=== PATIENT | female | born 1930 | race Caucasian/White ===

== ENCOUNTER 2017-03-16 16:06 | Emergency (ER) | payer MEDICAID ==
[2017-03-16 18:40] VITALS: BP 155/56
--- NOTE | 2017-03-18 11:19 | CR ---
INDICATION: Blood in mouth on awakening. Non-smoker. No cough. History of large hiatal hernia. Question pulmonary mass. CHEST: PA and lateral views of the chest 03/16/2017 were compared with 2014, again revealing a massive fixed hiatal hernia. Increased flattening of diaphragm leaves is compatible with progressive COPD. Prominent AP diameter is noted. The heart is enlarged. The aorta is tortuous and calcified. Accentuated dorsal kyphosis is noted. At the left lung base, it is difficult to exclude areas of patchy pneumonia with heavy markings in that area. Findings could also be on the basis of atelectasis. Otherwise, an active infiltrate or effusion was not suggested. IMPRESSION: 1. Cannot exclude atelectasis or patchy pneumonia at the left lung base - correlate clinically. 2. Large fixed hiatal hernia. 3. ASHD with cardiomegaly. 4. COPD, progressive. 5. Probable osteoporosis, moderate kyphosis. MTDD
--- NOTE | 2017-03-19 14:25 | ER ---
DATE SEEN: 03/16/2017 TIME SEEN: The patient was seen at 1635 hours. CHIEF COMPLAINT: Epistaxis. HISTORY OF PRESENT ILLNESS: The patient awoke this morning with a blood clot in her mouth. She does not know where it came from. She lives alone. She is worried that she might bleed to . She is here for further evaluation. PAST MEDICAL HISTORY: Significant for diabetes, hypertension, GERD, 50% of her stomach is noted to be in her abdomen per Dr. Driscoll's previous EGD with document of a dormant ulcer. No interval bleeding ulcer, but she had bleeding ulcers in the past. No recent stresses. No recent use of steroids. No recent fever, chills, cough, sore throat, nasal congestion, or runny nose. Significant for anemia, hypertension, arthritis in knees and hips, GERD, hiatus hernia, obesity, chronic kidney disease, anxiety, and dyslipidemia. REVIEW OF SYSTEMS: Denies shortness of breath, chest pain, irregular heartbeat, or abdominal discomfort. She does have swelling in her ankles. Denies near syncope, but she has difficulty walking. She has spent much time in a wheelchair because of her significant hip and knee arthritis. She is markedly obese 220 pounds with a 4 feet 11 inches height with a BMI of 44.4 kg/m2. Review of systems unremarkable except as noted above. PHYSICAL EXAMINATION: VITAL SIGNS: Blood pressure 163/60, repeat 155/56. The patient was concerned initially about her elevated blood pressure this evening. Heart rate 73 and regular. Respirations 18 and oxygen saturation 98% on room air. Temperature 36.3 degrees centigrade. CONSTITUTIONAL: The patient is sitting in a wheelchair, pleasant. Markedly obese woman, appears with markedly pendulous breasts. Very pleasant and interactive, in no acute distress, but anxious about possible cause of bleeding from her nose. She notes she coughs occasionally. HEENT: Without abnormality. PERRLA intact. Pharynx without erythema, without blood. Nares, right lateral turbinate suggesting excoriation is healed with no evidence for a focal bleeding site at the nares. Nares are clear of any blood. Pharynx is clear of any blood. LUNGS: Clear without rales, rhonchi, or wheezes. HEART: S1, S2. No tachycardia. ABDOMEN: Soft. No guarding. No deep abdominal pain and discomfort. Moderate increased abdominal girth. EXTREMITIES: Lower extremities with 1+ pedal edema. Nontender in lower extremities. Deep tendon reflexes hypoactive in upper and lower extremities. NEUROLOGIC: Cranial nerves 2 through 12 intact. Oriented appropriate and speech appropriate. Strength is decreased. The etiology for the patient's epistaxis is indeterminate. Does not appear to be from the nose. It looks like an old excoriation from "her picking her nose". The lateral mid turbinate is not the source of bleeding presently. LABORATORY DATA: Chest x-ray is performed. No evidence for lesion noted, no cardiomegaly, no lesions or granulomas or masses noted in the lungs. Other lab studies: Leukopenia 4000, hemoglobin low anemia 10.3, platelet count low 70,000. PMNs 62; lymphocytes 21; monos 13, slightly elevated; and eosinophils normal. PTT 25.8, normal and INR 1.04. Complete metabolic panel: Sodium, potassium, chloride, and CO2 normal at 143, 4.7, 107, and 28. BUN 38, creatinine 1.4 (suggests chronic kidney disease). Estimated creatinine clearance noted to be 23, however, GFR 36. BUN and creatinine ratio of 27 suggesting dehydration. Alkaline phosphatase slightly elevated 125, total protein 8.4. AST and ALT are normal, and bilirubin normal. After rechecking nares, she said she had a little more blood from her nose. Now, it is apparent that she has bleeding from the friable right medial septal mucosa. This site was treated with silver nitrate with resolution of bleeding. Site of epistaxis felt to be medial septal nares secondary to desiccation. The patient advised to use saline gel frequently during the day and also apply bacitracin once or twice a day. Humidify the house and follow up with doctor in a week or earlier if any problems. Continue medicines, no change in medicines. Also, there was a second concern, the patient has a large hiatus hernia. She has lost 30% of the stomach; it is in the lung. (She was told that half of her stomach is in the lung - above the diaphragm). She takes medications for GERD. It is remotely possible she could have an ulcer involving the surface of the stomach above or at the incisura created by the diaphragm against the stomach. If she has further bleeding, endoscopy may be worthy of consideration. OTHER DIAGNOSIS: 1. Bleeding is magnified by her thrombocytopenia and also low hemoglobin. 2. She has mild chronic kidney disease. For her age, her creatinine is not very high, but with a higher BUN, it is calculated at 36, even though this would make it chronic kidney disease stage III, I think she probably has stage II, (between stage II and stage III). If she has adequate hydration, I think this BUN would come down. She is mildly dehydrated as her BUN is elevated. /[id number] 1920 2019 PRAKASH/LEONOR
== END 2017-03-16 18:50 | disposition home or self-care (01) ==
LOC: FB.ED 16:06
DX: R04.0 Epistaxis (principal); D69.6 Thrombocytopenia, unspecified; D64.9 Anemia, unspecified; I12.9 Hypertensive chronic kidney disease with stage 1 through stage 4 chronic kidney disease, or unspecified chronic kidney disease; E11.22 Type 2 diabetes mellitus with diabetic chronic kidney disease; N18.9 Chronic kidney disease, unspecified
CPT/HCPCS: 30901; 36415; 71020; 80053; 85025; 85610; 85730; 99283

== ENCOUNTER 2019-06-05 18:18 | Observation (INO) | payer MEDICAID, OTHER, SELFPAY ==
[2019-06-05] MEDS ORDERED: Sodium Chloride 0.9% 10 ML Syringe FLUSH PRN (18:22)
[2019-06-05] MEDS ORDERED: Ondansetron 4 MG/2 ML SDV IVPUSH ONE (18:23)
[2019-06-05] MEDS ORDERED: Sodium Chloride 0.9% 500 ML IV ONE (18:23)
--- NOTE | 2019-06-05 18:36 | EDM.PDOC ---
ED HPI GENERAL MEDICAL PROBLEM - General Chief Complaint: Abdominal Pain Stated Complaint: VOMITTING DAMIAN Time Seen by Provider: 06/05/19 18:31 Source of Information: Reports: Patient, EMS History Limitations: Reports: No Limitations - History of Present Illness INITIAL COMMENTS - FREE TEXT/NARRATIVE: Presents with epigastric pain, vomiting, and diarrhea (non-bloody) x 3. Patient lives alone, is wheelchair bound, and has home healthcare three times a day. She has a prior h/o T2DM, HTN, CHF, Anemia, CKD, Anemia, and hiatal hernia. Prior surgeries include cholecystecomy and appendectomy, denies h/o bowel obstruction. Denies chest pain, SOB, cough, or fevers. Duration: Day(s): (3) Location: Reports: Abdomen Severity: Moderate - Related Data Allergies Allergy/AdvReac Type Severity Reaction Status Date / Time propoxyphene HCl Allergy Cannot Verified 02/26/18 13:37 [From Darvon] Remember valsartan Allergy Cannot Uncoded 02/26/18 13:37 Remember Home Meds: Home Meds Losartan/Hydrochlorothiazide [Losartan-HCTZ 100-25 MG] 1 tab PO DAILY 07/09/14 [ History] Simvastatin 40 mg PO BEDTIME 07/09/14 [History] Acetaminophen [Tylenol Arthritis Pain] 1,000 mg PO TID 03/16/15 [History] Aspirin 81 mg PO DAILY 03/16/15 [History] Gabapentin [Neurontin] 300 mg PO TID 08/22/15 [History] Loratadine [Claritin] 10 mg PO DAILY 08/22/15 [History] Vit C/Vit E AC/Lut/Copper/Zinc [Preservision Lutein Softgel] 1 tab PO BID [History] Colloidal Oatmeal [Eczema Relief] 1 applic TP BID 01/26/18 [History] Metoprolol Succinate [Toprol XL 50mg] 50 mg PO DAILY 01/26/18 [History] Ranitidine [Zantac] 300 mg PO BEDTIME 01/26/18 [History] Sertraline [Zoloft] 75 mg PO DAILY 01/26/18 [History] traMADol [Ultram] 50 mg PO BID PRN 01/26/18 [History] Fluticasone Propionate [Flonase] 2 sprays NASBOTH DAILY 01/27/18 [History] Polyvinyl Alcohol/Povidone/Pf [Refresh Classic Eye Drops] 1 drop EYEBOTH BID [History] Sodium Chloride 0.65% [[place] Saline] 2 sprays DAMIAN TID 01/27/18 [History] Triamcinolone Acetonide [Triamcinolone Acetonide 0.025%] 1 applic TOP BID PRN [History] Amoxicillin/Clavulanate K [Augmentin 500-125 MG] 1 tab PO BID #20 tablet [Rx] Furosemide [Lasix] 40 mg PO DAILY #30 tablet 02/05/18 [Rx] Iron Polysaccharides Complex [Ferrex 150] 150 mg PO DAILY #30 cap 02/05/18 [Rx] Potassium Chloride [Klor-Con 10] 10 meq PO BID #60 tab.er 02/05/18 [Rx] Past Medical History HEENT History: Reports: Cataract, Macular Degeneration Other HEENT History: Both cataracts removed. Rhinitis. Cardiovascular History: Reports: Heart Murmur, High Cholesterol, Hypertension Other Cardiovascular History: c/o pain in left arm at times that doctors don't seem concerned about it Respiratory History: Reports: Bronchitis, Recurrent Gastrointestinal History: Reports: Diverticulosis, Hiatal Hernia, Other (See Below) Other Gastrointestinal History: Thomas's esophagus with dysplasia. Diaphragmatic hernia. Morbid obesity. Genitourinary History: Reports: Chronic Renal Insuffiency, Urinary Incontinence Other Genitourinary History: Stress incontinence. Stage 3 kidney disease. PLANT [employer] SUPERINTENDENT History: Reports: None Other PLANT PROTECTION SUPERINTENDENT History: G0 Musculoskeletal History: Reports: Arthritis, Osteoarthritis Other Musculoskeletal History: Osteoarthritis of hands and knees. Osteopenia. Neurological History: Reports: Concussion, Neuropathy, Peripheral, Other (See Below) Other Neuro History: PVD Psychiatric History: Reports: Anxiety, Depression Other Psychiatric History: Anxiety disorder. Depressive disorder. Endocrine/Metabolic History: Reports: Diabetes, Type II, Obesity/BMI 30+ Hematologic History: Reports: Anemia Immunologic History: Reports: None Oncologic (Cancer) History: Reports: None Dermatologic History: Reports: Other (See Below) Other Dermatologic History: Scattered scabs on lower legs, healing in various stages. - Infectious Disease History Infectious Disease History: Reports: Measles, Other (See Below) Other Infectious Disease History: WHOOPING COUGH. - Past Surgical History Head Surgeries/Procedures: Reports: None HEENT Surgical History: Reports: Cataract Surgery Cardiovascular Surgical History: Reports: None Respiratory Surgical History: Reports: None GI Surgical History: Reports: Appendectomy, Cholecystectomy Musculoskeletal Surgical History: Reports: Other (See Below) Other Musculoskeletal Surgeries/Procedures:: Bunionectomy Rt foot; Trigger release to Rt toes Social & Family History - Family History Family Medical History: Noncontributory - Tobacco Use Tobacco Use Within Last Twelve Months: No - Caffeine Use Caffeine Use: Reports: None Other Caffeine Use: gatorade ED ROS GENERAL - Review of Systems Review Of Systems: Comprehensive ROS is negative, except as noted in HPI. ED EXAM, GI/ABD - Physical Exam Exam: See Below Exam Limited By: No Limitations General Appearance: Alert, WD/WN, No Apparent Distress Throat/Mouth: Normal Inspection, No Airway Compromise Head: Atraumatic, Normocephalic Neck: Supple Respiratory/Chest: No Respiratory Distress, Lungs Clear, Normal Breath Sounds Cardiovascular: Regular Rate, Rhythm, No Murmur GI/Abdominal Exam: Normal Bowel Sounds, Soft, No Distention, Tender (moderate epigastric). No: Guarding Back Exam: Full Range of Motion Extremities: Normal Range of Motion Neurological: Alert, Oriented, Normal Cognition Psychiatric: Normal Affect, Normal Mood Skin Exam: Warm, Dry, Intact Course - Vital Signs Last Recorded V/S: Last Vital Signs Temp 36.6 C 06/05/19 18:20 Pulse 95 06/05/19 18:20 Resp 18 06/05/19 18:20 BP 157/69 H 06/05/19 18:20 Pulse Ox 94 L 06/05/19 18:20 - Orders/Labs/Meds Orders: Active Orders 24 hr Category Date Time Status Admission Status [Patient Status] [ADT] Routine ADT 06/05/19 20:50 Active Abdomen Pelvis wo Cont [CT] Stat Exams 06/05/19 18:58 Taken C DIFFICILE AG/TOXIN W/REFLEX [RM] Stat Lab 06/05/19 18:21 Ordered STOOL CULTURE Stat Lab 06/05/19 18:21 Ordered WHITE BLOOD CELLS (WBC), STOOL Stat Lab 06/05/19 18:21 Ordered Sodium Chloride 0.9% [Saline Flush] Med 06/05/19 18:22 Active 10 ml FLUSH ASDIRECTED PRN Saline Lock Insert [OM.PC] Routine Oth 06/05/19 18:22 Ordered Medication Orders Ceftriaxone Sodium (Rocephin) 2 gm IVPUSH Q24H ALESHA Sodium Chloride (Normal Saline) 1,000 mls @ 75 mls/hr IV ASDIRECTED ALESHA Ondansetron HCl (Zofran) 4 mg IV Q8H PRN PRN Reason: Nausea/Vomiting Sodium Chloride (Saline Flush) 10 ml FLUSH ASDIRECTED PRN PRN Reason: Keep Vein Open Labs: Laboratory Tests 06/05/19 06/05/19 06/05/19 Range/Units 18:30 18:30 18:30 WBC 4.8 (4.5-12.0) X10-3/uL RBC 3.90 (3.23-5.20) x10(6)uL Hgb 11.5 (11.5-15.5) g/dL Hct 35.6 (30.0-51.3) % MCV 91.2 (80-96) fL MCH 29.4 (27.7-33.6) pg MCHC 32.2 (32.2-35.4) g/dL RDW 15.5 (11.5-15.5) % Plt Count 54 L (125-369) X10(3)uL MPV 10.2 (7.4-10.4) fL Neut % (Auto) 55.1 (46-82) % Lymph % (Auto) 34.1 (13-37) % [place]pton % (Auto) 10.4 (4-12) % Eos % (Auto) 0 L (1.0-5.0) % Baso % (Auto) 0 (0-2) % Neut # (Auto) 2.7 (1.6-8.3) # Lymph # (Auto) 1.6 (0.6-5.0) # [place] # (Auto) 0.5 (0.0-1.3) # Eos # (Auto) 0.0 (0.0-0.8) # Baso # (Auto) 0.0 (0.0-0.2) # Sodium 143 (135-145) mmol/L Potassium 3.9 (3.5-5.3) mmol/L Chloride 101 D (100-110) mmol/L Carbon Dioxide 29 (21-32) mmol/L BUN 32 H D (7-18) mg/dL Creatinine 1.8 H (0.55-1.02) mg/dL Est Cr Clr Drug Dosing TNP Estimated GFR (MDRD) 26 L (>60) BUN/Creatinine Ratio 17.8 (9-20) Glucose 145 H (80-116) mg/dL Calcium 9.8 (8.6-10.2) mg/dL Total Bilirubin 1.4 H (0.1-1.3) mg/dL AST 26 H D (5-25) IU/L ALT 16 (12-36) U/L Alkaline Phosphatase 105 (56-112) IU/L Total Protein 9.3 H (6.0-8.0) g/dL Albumin 4.0 (2.9-4.5) g/dL Globulin 5.3 g/dL Albumin/Globulin Ratio 0.8 Lipase 127 (73-393) U/L Meds: Medications Generic Name Dose Route Start Last Admin Trade Name Freq PRN Reason Stop Dose Admin Ceftriaxone Sodium 2 gm 06/05/19 21:45 Rocephin IVPUSH Q24H ALESHA Sodium Chloride 1,000 mls @ 75 mls/hr 06/05/19 21:45 Normal Saline IV ASDIRECTED ALESHA Ondansetron HCl 4 mg 06/05/19 21:36 Zofran IV Q8H PRN Nausea/Vomiting Sodium Chloride 10 ml 06/05/19 18:22 Saline Flush FLUSH ASDIRECTED PRN Keep Vein Open Discontinued Medications Generic Name Dose Route Start Last Admin Trade Name Freq PRN Reason Stop Dose Admin Sodium Chloride 500 mls @ 500 mls/hr 06/05/19 18:23 06/05/19 18:53 Normal Saline IV 06/05/19 19:22 500 mls/hr .BOLUS ONE Administration Ondansetron HCl 4 mg 06/05/19 18:23 06/05/19 18:51 Zofran IVPUSH 06/05/19 18:24 4 mg ONETIME ONE Administration - Radiology Interpretation Free Text/Narrative:: CT Abd/pelvis w/o contrast: Wall thickening and fat stranding around the urinary bladder. Large hiatal hernia. Nonobstructive left nephrolithiasis. Small fat containing ventral hernia. Colonic diverticulosis. ([facility], Dr. Reyes) - Re-Assessments/Exams Free Text/Narrative Re-Assessment/Exam: 06/05/19 20:54 Patient feels better after NS IV and Zofran 4mg IV. Departure - Departure Time of Disposition: 20:54 Disposition: Refer to Observation Condition: Good Clinical Impression: Gastroenteritis UTI (urinary tract infection) Qualifiers: Urinary tract infection type: acute cystitis Hematuria presence: with hematuria Qualified Code(s): N30.01 - Acute cystitis with hematuria - Discharge Information *PRESCRIPTION DRUG MONITORING PROGRAM REVIEWED*: No *COPY OF PRESCRIPTION DRUG MONITORING REPORT IN PATIENT BLANCA: Not Applicable Sepsis Event Note - Focused Exam Vital Signs: Vital Signs Temp Pulse Resp BP Pulse Ox 06/05/19 18:20 36.6 C 95 18 157/69 H 94 L Date Exam was Performed: 06/05/19 Time Exam was Performed: 21:42 - My Orders Last 24 Hours: My Active Orders 06/05/19 18:21 C DIFFICILE AG/TOXIN W/REFLEX [RM] Stat STOOL CULTURE Stat WHITE BLOOD CELLS (WBC), STOOL Stat 06/05/19 18:22 Sodium Chloride 0.9% [Saline Flush] 10 ml FLUSH ASDIRECTED PRN Saline Lock Insert [OM.PC] Routine 06/05/19 18:58 Abdomen Pelvis wo Cont [CT] Stat 06/05/19 20:50 Admission Status [Patient Status] [ADT] Routine - Assessment/Plan Last 24 Hours: My Active Orders 06/05/19 18:21 C DIFFICILE AG/TOXIN W/REFLEX [RM] Stat STOOL CULTURE Stat WHITE BLOOD CELLS (WBC), STOOL Stat 06/05/19 18:22 Sodium Chloride 0.9% [Saline Flush] 10 ml FLUSH ASDIRECTED PRN Saline Lock Insert [OM.PC] Routine 06/05/19 18:58 Abdomen Pelvis wo Cont [CT] Stat 06/05/19 20:50 Admission Status [Patient Status] [ADT] Routine
[2019-06-05] MEDS ORDERED: Ondansetron 4 MG/2 ML SDV IV PRN (21:36)
[2019-06-05] MEDS: Sodium Chloride 0.9% 1,000 ML IV SCH (22:16)
[2019-06-05] MEDS: cefTRIAXone 2 GM Vial IVPUSH SCH (22:17)
--- NOTE | 2019-06-06 05:19 | PCM.HP.2 ---
H&P History of Present Illness - General Date of Service: 06/06/19 Admit Problem/Dx: Admission Diagnosis/Problem Admission Diagnosis/Problem Gastroenteritis Source of Information: Patient History Limitations: Reports: No Limitations - History of Present Illness Initial Comments - Free Text/Narative: Payton is an 88 yo female who came in for intractable vomiting,nausea and diarrhea. She has a h/o recurrent vomiting,secondary to hiatal hernia. Her symptoms were for 2 days or so.No recent antibiotic use. She feels better after IV fluids supplementation. Payton has DM,CKD,anemia, HTN and a h/o CHF.She is wheelchair bound because of knee pain ,bilateral,and has a healthcare or medical to help with ADLs(she lives alone) pain Pain Score (Numeric/FACES): 0 - Related Data Allergies/Adverse Reactions: Allergies Allergy/AdvReac Type Severity Reaction Status Date / Time propoxyphene HCl Allergy Cannot Verified 02/26/18 13:37 [From Apurva] Remember valsartan Allergy Cannot Uncoded 02/26/18 13:37 Remember Home Medications: Home Meds Simvastatin 40 mg PO BEDTIME 07/09/14 [History] Acetaminophen [Tylenol Arthritis Pain] 1,000 mg PO TID 03/16/15 [History] Aspirin 81 mg PO DAILY 03/16/15 [History] Gabapentin [Neurontin] 300 mg PO TID 08/22/15 [History] Loratadine [Claritin] 10 mg PO DAILY 08/22/15 [History] Colloidal Oatmeal [Eczema Relief] 1 applic TP BID 01/26/18 [History] Metoprolol Succinate [Toprol XL 50mg] 50 mg PO DAILY 01/26/18 [History] Sertraline [Zoloft] 75 mg PO DAILY 01/26/18 [History] Fluticasone Propionate [Flonase] 2 sprays NASBOTH DAILY 01/27/18 [History] Furosemide [Lasix] 40 mg PO DAILY #30 tablet 02/05/18 [Rx] Past Medical History HEENT History: Reports: Cataract, Macular Degeneration Other HEENT History: Both cataracts removed. Rhinitis. Cardiovascular History: Reports: Heart Murmur, High Cholesterol, Hypertension Other Cardiovascular History: c/o pain in left arm at times that doctors don't seem concerned about it Respiratory History: Reports: Bronchitis, Recurrent Gastrointestinal History: Reports: Diverticulosis, Hiatal Hernia, Other (See Below) Other Gastrointestinal History: Gaitan's esophagus with dysplasia. Diaphragmatic hernia. Morbid obesity. Genitourinary History: Reports: Chronic Renal Insuffiency, Urinary Incontinence Other Genitourinary History: Stress incontinence. Stage 3 kidney disease. [employer] History: Reports: None Other OB/BYN History: G0 Musculoskeletal History: Reports: Arthritis, Osteoarthritis Other Musculoskeletal History: Osteoarthritis of hands and knees. Osteopenia. Neurological History: Reports: Concussion, Neuropathy, Peripheral, Other (See Below) Other Neuro History: PVD Psychiatric History: Reports: Anxiety, Depression Other Psychiatric History: Anxiety disorder. Depressive disorder. Endocrine/Metabolic History: Reports: Diabetes, Type II, Obesity/BMI 30+ Hematologic History: Reports: Anemia Immunologic History: Reports: None Oncologic (Cancer) History: Reports: None Dermatologic History: Reports: Other (See Below) Other Dermatologic History: Scattered scabs on lower legs, healing in various stages. - Infectious Disease History Infectious Disease History: Reports: Measles, Pertussis (Whooping Cough), Other (See Below) Other Infectious Disease History: WHOOPING COUGH. - Past Surgical History Head Surgeries/Procedures: Reports: None HEENT Surgical History: Reports: Cataract Surgery Cardiovascular Surgical History: Reports: None Respiratory Surgical History: Reports: None GI Surgical History: Reports: Appendectomy, Cholecystectomy Musculoskeletal Surgical History: Reports: Other (See Below) Other Musculoskeletal Surgeries/Procedures:: Bunionectomy Rt foot; Trigger release to Rt toes Social & Family History - Family History Family Medical History: Noncontributory - Tobacco Use Smoking Status *Q: Never Smoker Second Hand Smoke Exposure: No - Caffeine Use Caffeine Use: Reports: None Other Caffeine Use: gatorade - Recreational Drug Use Recreational Drug Use: No H&P Review of Systems - Review of Systems: Review Of Systems: Comprehensive ROS is negative, except as noted in HPI. Exam - Exam Exam: See Below - Vital Signs Vital Signs: Last Vital Signs Temp 97.8 F 06/06/19 02:00 Pulse 71 06/06/19 02:00 Resp 18 06/06/19 02:00 BP 125/63 06/06/19 02:00 Pulse Ox 93 L 06/06/19 02:00 Weight: 95.844 kg - Exam General: Alert, Oriented, 4 HEENT: PERRLA, Hearing Intact, Mucosa Moist & Raub, Nares Patent, Normal Nasal Septum, Posterior Pharynx Clear, Conjunctiva Clear, EOMI, EACs Clear, TMs Clear Neck: Supple, Trachea Midline, 2 Lungs: Clear to Auscultation, Normal Respiratory Effort Cardiovascular: Regular Rate, Regular Rhythm GI/Abdominal Exam: Tender (Epigastrium) (Female) Exam: Deferred Rectal (Female) Exam: Deferred Back Exam: Normal Inspection, Full Range of Motion, NT Extremities: Normal Inspection, Normal Range of Motion, Non-Tender, No Pedal Edema, Normal Capillary Refill Skin: Warm, Dry, Intact Neurological: Cranial Nerves Intact, Reflexes Equal Bilateral Neuro Extensive - Mental Status: Alert, Oriented x3, Normal Mood/Affect, Normal Cognition Neuro Extensive - Motor, Sensory, Reflexes: CN II-XII Intact, Normal Gait, Normal Reflexes Psychiatric: Alert, Normal Affect, Normal Mood - Patient Data Lab Results Last 24 hrs: Laboratory Results - last 24 hr 06/05/19 06/05/19 06/05/19 Range/Units 18:30 18:30 18:30 WBC 4.8 (4.5-12.0) X10-3/uL RBC 3.90 (3.23-5.20) x10(6)uL Hgb 11.5 (11.5-15.5) g/dL Hct 35.6 (30.0-51.3) % MCV 91.2 (80-96) fL MCH 29.4 (27.7-33.6) pg MCHC 32.2 (32.2-35.4) g/dL RDW 15.5 (11.5-15.5) % Plt Count 54 L (125-369) X10(3)uL MPV 10.2 (7.4-10.4) fL Neut % (Auto) 55.1 (46-82) % Lymph % (Auto) 34.1 (13-37) % Wirt % (Auto) 10.4 (4-12) % Eos % (Auto) 0 L (1.0-5.0) % Baso % (Auto) 0 (0-2) % Neut # (Auto) 2.7 (1.6-8.3) # Lymph # (Auto) 1.6 (0.6-5.0) # Wirt # (Auto) 0.5 (0.0-1.3) # Eos # (Auto) 0.0 (0.0-0.8) # Baso # (Auto) 0.0 (0.0-0.2) # Sodium 143 (135-145) mmol/L Potassium 3.9 (3.5-5.3) mmol/L Chloride 101 D (100-110) mmol/L Carbon Dioxide 29 (21-32) mmol/L BUN 32 H D (7-18) mg/dL Creatinine 1.8 H (0.55-1.02) mg/dL Est Cr Clr Drug Dosing TNP Estimated GFR (MDRD) 26 L (>60) BUN/Creatinine Ratio 17.8 (9-20) Glucose 145 H (80-116) mg/dL Calcium 9.8 (8.6-10.2) mg/dL Total Bilirubin 1.4 H (0.1-1.3) mg/dL AST 26 H D (5-25) IU/L ALT 16 (12-36) U/L Alkaline Phosphatase 105 (56-112) IU/L Total Protein 9.3 H (6.0-8.0) g/dL Albumin 4.0 (2.9-4.5) g/dL Globulin 5.3 g/dL Albumin/Globulin Ratio 0.8 Lipase 127 (73-393) U/L Urine Color (YELLOW) Urine Appearance (CLEAR) Urine pH (5.0-6.5) Ur Specific [place] (1.010-1.025) Urine Protein (NEGATIVE) mg/dL Urine Glucose (UA) (NORMAL) mg/dL Urine Ketones (NEGATIVE) mg/dL Urine Occult Blood (NEGATIVE) Urine Nitrite (NEGATIVE) Urine Bilirubin (NEGATIVE) Urine Urobilinogen (NEGATIVE) mg/dL Ur Leukocyte Esterase (NEGATIVE) Urine RBC (0-5) Urine WBC (0-5) Ur Epithelial Cells Urine Bacteria (NS) 06/05/19 Range/Units 21:15 WBC (4.5-12.0) X10-3/uL RBC (3.23-5.20) x10(6)uL Hgb (11.5-15.5) g/dL Hct (30.0-51.3) % MCV (80-96) fL MCH (27.7-33.6) pg MCHC (32.2-35.4) g/dL RDW (11.5-15.5) % Plt Count (125-369) X10(3)uL MPV (7.4-10.4) fL Neut % (Auto) (46-82) % Lymph % (Auto) (13-37) % Wirt % (Auto) (4-12) % Eos % (Auto) (1.0-5.0) % Baso % (Auto) (0-2) % Neut # (Auto) (1.6-8.3) # Lymph # (Auto) (0.6-5.0) # Wirt # (Auto) (0.0-1.3) # Eos # (Auto) (0.0-0.8) # Baso # (Auto) (0.0-0.2) # Sodium (135-145) mmol/L Potassium (3.5-5.3) mmol/L Chloride (100-110) mmol/L Carbon Dioxide (21-32) mmol/L BUN (7-18) mg/dL Creatinine (0.55-1.02) mg/dL Est Cr Clr Drug Dosing Estimated GFR (MDRD) (>60) BUN/Creatinine Ratio (9-20) Glucose (80-116) mg/dL Calcium (8.6-10.2) mg/dL Total Bilirubin (0.1-1.3) mg/dL AST (5-25) IU/L ALT (12-36) U/L Alkaline Phosphatase (56-112) IU/L Total Protein (6.0-8.0) g/dL Albumin (2.9-4.5) g/dL Globulin g/dL Albumin/Globulin Ratio Lipase (73-393) U/L Urine Color Yellow (YELLOW) Urine Appearance Cloudy (CLEAR) Urine pH 6.0 (5.0-6.5) Ur Specific [place] 1.015 (1.010-1.025) Urine Protein 30 H (NEGATIVE) mg/dL Urine Glucose (UA) Normal (NORMAL) mg/dL Urine Ketones 15 H (NEGATIVE) mg/dL Urine Occult Blood Large H (NEGATIVE) Urine Nitrite Negative (NEGATIVE) Urine Bilirubin Negative (NEGATIVE) Urine Urobilinogen Normal (NEGATIVE) mg/dL Ur Leukocyte Esterase Large H (NEGATIVE) Urine RBC 5-10 H (0-5) Urine WBC 50-75 H (0-5) Ur Epithelial Cells Occasional Urine Bacteria Moderate H (NS) Result Diagrams: 06/06/19 06:30 06/06/19 06:30 Sepsis Event Note - Evaluation Sepsis Screening Result: No Definite Risk - Focused Exam Vital Signs: Vital Signs Temp Pulse Resp BP Pulse Ox 06/06/19 02:00 97.8 F 71 18 125/63 93 L 06/06/19 00:00 97.9 F 70 18 134/59 L 93 L 06/05/19 22:40 97.8 F 78 20 122/69 93 L 06/05/19 18:20 97.9 F 95 18 157/69 H 94 L Date Exam was Performed: 06/06/19 Time Exam was Performed: 11:05 - Problem List (1) Gastroenteritis SNOMED Code(s): 24041084 ICD Code: K52.9 - NONINFECTIVE GASTROENTERITIS AND COLITIS, UNSPECIFIED Status: Acute Current Visit: Yes (2) CKD (chronic kidney disease) SNOMED Code(s): 943733281 ICD Code: N18.9 - CHRONIC KIDNEY DISEASE, UNSPECIFIED Status: Acute Current Visit: Yes Qualifiers: Chronic kidney disease stage: stage 3 (moderate) Qualified Code(s): N18.3 - Chronic kidney disease, stage 3 (moderate) (3) UTI (urinary tract infection) SNOMED Code(s): 57094006 ICD Code: N39.0 - URINARY TRACT INFECTION, SITE NOT SPECIFIED Status: Acute Current Visit: Yes Qualifiers: Urinary tract infection type: acute cystitis Hematuria presence: with hematuria Qualified Code(s): N30.01 - Acute cystitis with hematuria (4) Anemia SNOMED Code(s): 687503117 ICD Code: D64.9 - ANEMIA, UNSPECIFIED Status: Chronic Current Visit: No Qualifiers: Anemia type: due to chronic kidney disease (5) Gaitan esophagus SNOMED Code(s): 802451705 ICD Code: K22.70 - GAITAN'S ESOPHAGUS WITHOUT DYSPLASIA Status: Chronic Current Visit: No Qualifiers: 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 Qualified Code(s): K22.719 - Gaitan's esophagus with dysplasia, unspecified; 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 (6) Debility SNOMED Code(s): 36743786 ICD Code: R53.81 - OTHER MALAISE Status: Chronic Current Visit: No (7) Diaphragmatic hernia SNOMED Code(s): 21430407 ICD Code: K44.9 - DIAPHRAGMATIC HERNIA WITHOUT OBSTRUCTION OR GANGRENE Status: Chronic Current Visit: No Qualifiers: Obstruction and gangrene presence: without obstruction or gangrene Qualified Code(s): K44.9 - Diaphragmatic hernia without obstruction or gangrene (8) HTN (hypertension) SNOMED Code(s): 35864694 ICD Code: I10 - ESSENTIAL (PRIMARY) HYPERTENSION Status: Chronic Current Visit: No Problem Details: Continue meds. Qualifiers: Hypertension type: essential hypertension Qualified Code(s): I10 - Essential (primary) hypertension (9) Hypothyroidism SNOMED Code(s): 47364519 ICD Code: E03.9 - HYPOTHYROIDISM, UNSPECIFIED Status: Chronic Current Visit: No Qualifiers: Hypothyroidism type: unspecified Qualified Code(s): E03.9 - Hypothyroidism , unspecified (10) Obesity SNOMED Code(s): 184172411, 840059950 ICD Code: E66.9 - OBESITY, UNSPECIFIED Status: Chronic Current Visit: No Qualifiers: Obesity type: due to excess calories Problem List Initiated/Reviewed/Updated: Yes Orders Last 24hrs: Active Orders 24 hr Category Date Time Status Admission Status [Patient Status] [ADT] Routine ADT 06/05/19 20:50 Active Height and Weight [RC] DAILY Care 06/05/19 21:36 Active Oxygen Therapy [RC] PRN Care 06/05/19 21:37 Active VTE/DVT Education [RC] Per Unit Routine Care 06/05/19 21:37 Active Vital Signs [RC] QSHIFT Care 06/05/19 21:37 Active Clear Liquid Diet [DIET] Diet 06/06/19 Breakfast Active Abdomen Pelvis wo Cont [CT] Stat Exams 06/05/19 18:58 Taken BASIC METABOLIC PANEL,BMP [CHEM] AM Lab 06/06/19 05:11 Ordered C DIFFICILE AG/TOXIN W/REFLEX [RM] Stat Lab 06/05/19 18:21 Ordered CBC WITH AUTO DIFF [HEME] AM Lab 06/06/19 05:11 Ordered CULTURE URINE [RM] Routine Lab 06/05/19 21:20 Received STOOL CULTURE Stat Lab 06/05/19 18:21 Ordered WHITE BLOOD CELLS (WBC), STOOL Stat Lab 06/05/19 18:21 Ordered Acetaminophen [Tylenol Arthritis Pain] Med 06/06/19 09:00 Pending 1,000 mg PO TID Fluticasone Propionate [Flonase] Med 06/06/19 09:00 Pending DOSE gm NASBOTH DAILY Gabapentin [Neurontin] Med 06/06/19 09:00 Ordered 300 mg PO TID Metoprolol Succinate [Toprol XL] Med 06/06/19 09:00 Ordered 50 mg PO DAILY Ondansetron [Zofran] Med 06/05/19 21:36 Active 4 mg IV Q8H PRN Sertraline [Zoloft] Med 06/06/19 09:00 Ordered 75 mg PO DAILY Simvastatin [Zocor] Med 06/06/19 21:00 Ordered 40 mg PO BEDTIME Sodium Chloride 0.9% [Normal Saline] 1,000 ml Med 06/05/19 21:45 Active IV ASDIRECTED Sodium Chloride 0.9% [Saline Flush] Med 06/05/19 18:22 Active 10 ml FLUSH ASDIRECTED PRN cefTRIAXone [Rocephin] Med 06/05/19 22:00 Active 2 gm IVPUSH Q24H Saline Lock Insert [OM.PC] Routine Oth 06/05/19 18:22 Ordered Resuscitation Status Routine Resus Stat 06/05/19 21:36 Ordered Medication Orders Acetaminophen (Tylenol Arthritis Pain) 1,000 mg PO TID [facility] Ceftriaxone Sodium (Rocephin) 2 gm IVPUSH Q24H [facility] Last Admin: 06/05/19 22:17 Dose: 2 gm Fluticasone Propionate (Flonase) gm NASBOTH DAILY [facility] Gabapentin (Neurontin) 300 mg PO TID [facility] Sodium Chloride (Normal Saline) 1,000 mls @ 75 mls/hr IV ASDIRECTED ALESHA Last Admin: 06/05/19 22:16 Dose: 75 mls/hr Metoprolol Succinate (Toprol Xl) 50 mg PO DAILY [facility] Ondansetron HCl (Zofran) 4 mg IV Q8H PRN PRN Reason: Nausea/Vomiting Sertraline HCl (Zoloft) 75 mg PO DAILY [facility] Simvastatin (Zocor) 40 mg PO BEDTIME [facility]HA Sodium Chloride (Saline Flush) 10 ml FLUSH ASDIRECTED PRN PRN Reason: Keep Vein Open Assessment/Plan Comment:: Improved with IVF. May DC home with oral abx if she improves
[2019-06-06] MEDS: Gabapentin 100 MG Cap PO SCH ×3 (08:40→20:19)
[2019-06-06] MEDS: Fluticasone Propionate Nasal Spray 16 GM Bottle NASBOTH SCH (08:40)
[2019-06-06] MEDS: Metoprolol Succinate 50 MG Tab.ER PO SCH (08:41)
[2019-06-06] MEDS: Acetaminophen 650 MG Tab.ER PO SCH ×3 (08:41→20:20)
[2019-06-06] MEDS: Sertraline 50 MG Tab PO SCH (08:42)
[2019-06-06] MEDS: Sodium Chloride 0.9% 1,000 ML IV SCH (12:01)
[2019-06-06] MEDS: Simvastatin 40 MG Tab PO SCH (20:18)
[2019-06-06] MEDS: cefTRIAXone 2 GM Vial IVPUSH SCH (22:09)
--- NOTE | 2019-06-07 08:46 | PCM.PN ---
- General Info Date of Service: 06/07/19 Subjective Update: Feels better. Vomiting and nausea improved. Functional Status: Reports: Pain Controlled - Review of Systems General: Reports: No Symptoms HEENT: Reports: No Symptoms Pulmonary: Reports: No Symptoms Cardiovascular: Reports: No Symptoms Gastrointestinal: Reports: No Symptoms Genitourinary: Reports: No Symptoms - Patient Data Vitals - Most Recent: Last Vital Signs Temp 98.1 F 06/06/19 23:30 Pulse 67 06/06/19 23:30 Resp 18 06/06/19 23:30 BP 134/54 L 06/06/19 23:30 Pulse Ox 93 L 06/06/19 23:30 Weight - Most Recent: 96.615 kg I&O - Last 24 Hours: Intake & Output 06/06/19 06/07/19 06/07/19 22:59 06:59 14:59 Intake Total 218 Balance 218 Yazan Results Last 24 Hours: Microbiology 06/05/19 21:20 Urine Culture - Preliminary Urine, Catheterized Med Orders - Current: Current Medications Acetaminophen (Tylenol Arthritis Pain) 975 mg PO TID [facility] Last Admin: 06/06/19 20:20 Dose: 975 mg Ceftriaxone Sodium (Rocephin) 2 gm IVPUSH Q24H [facility] Last Admin: 06/06/19 22:09 Dose: 2 gm Fluticasone Propionate (Flonase) 0 gm NASBOTH DAILY [facility] Last Admin: 06/06/19 08:40 Dose: 16 gram Gabapentin (Neurontin) 300 mg PO TID [facility] Last Admin: 06/06/19 20:19 Dose: 300 mg Metoprolol Succinate (Toprol Xl) 50 mg PO DAILY [facility] Last Admin: 06/06/19 08:41 Dose: 50 mg Ondansetron HCl (Zofran) 4 mg IV Q8H PRN PRN Reason: Nausea/Vomiting Sertraline HCl (Zoloft) 75 mg PO DAILY [facility] Last Admin: 06/06/19 08:42 Dose: 75 mg Simvastatin (Zocor) 40 mg PO BEDTIME [facility] Last Admin: 06/06/19 20:18 Dose: 40 mg Sodium Chloride (Saline Flush) 10 ml FLUSH ASDIRECTED PRN PRN Reason: Keep Vein Open Discontinued Medications Sodium Chloride (Normal Saline) 500 mls @ 500 mls/hr IV .BOLUS ONE Stop: 06/05/19 19:22 Last Admin: 06/05/19 18:53 Dose: 500 mls/hr Sodium Chloride (Normal Saline) 1,000 mls @ 75 mls/hr IV ASDIRECTED ALESHA Last Admin: 06/06/19 12:01 Dose: 75 mls/hr Ondansetron HCl (Zofran) 4 mg IVPUSH ONETIME ONE Stop: 06/05/19 18:24 Last Admin: 06/05/19 18:51 Dose: 4 mg - Exam General: Alert, Oriented HEENT: Pupils Equal Lungs: Clear to Auscultation Cardiovascular: Regular Rate Skin: Warm Wound/Incisions: Healing Well Neurological: No New Focal Deficit Psy/Mental Status: Alert Sepsis Event Note - Evaluation Sepsis Screening Result: No Definite Risk - Focused Exam Vital Signs: Vital Signs Temp Pulse Resp BP Pulse Ox 06/06/19 23:30 98.1 F 67 18 134/54 L 93 L Date Exam was Performed: 06/07/19 Time Exam was Performed: 08:44 - Problem List & Annotations (1) Gastroenteritis SNOMED Code(s): 88872054 Code(s): K52.9 - NONINFECTIVE GASTROENTERITIS AND COLITIS, UNSPECIFIED Status: Acute Current Visit: Yes (2) CKD (chronic kidney disease) SNOMED Code(s): 752317408 Code(s): N18.9 - CHRONIC KIDNEY DISEASE, UNSPECIFIED Status: Acute Current Visit: Yes Qualifiers: Chronic kidney disease stage: stage 3 (moderate) Qualified Code(s): N18.3 - Chronic kidney disease, stage 3 (moderate) (3) UTI (urinary tract infection) SNOMED Code(s): 86512544 Code(s): N39.0 - URINARY TRACT INFECTION, SITE NOT SPECIFIED Status: Acute Current Visit: Yes Qualifiers: Urinary tract infection type: acute cystitis Hematuria presence: with hematuria Qualified Code(s): N30.01 - Acute cystitis with hematuria (4) Anemia SNOMED Code(s): 216835592 Code(s): D64.9 - ANEMIA, UNSPECIFIED Status: Chronic Current Visit: No Qualifiers: Anemia type: due to chronic kidney disease (5) Gaitan esophagus SNOMED Code(s): 478661326 Code(s): K22.70 - GAITAN'S ESOPHAGUS WITHOUT DYSPLASIA Status: Chronic Current Visit: No Qualifiers: 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 Qualified Code(s): K22.719 - Gaitan's esophagus with dysplasia, unspecified; 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 (6) Debility SNOMED Code(s): 37365446 Code(s): R53.81 - OTHER MALAISE Status: Chronic Current Visit: No (7) Diaphragmatic hernia SNOMED Code(s): 71281778 Code(s): K44.9 - DIAPHRAGMATIC HERNIA WITHOUT OBSTRUCTION OR GANGRENE Status: Chronic Current Visit: No Qualifiers: Obstruction and gangrene presence: without obstruction or gangrene Qualified Code(s): K44.9 - Diaphragmatic hernia without obstruction or gangrene (8) HTN (hypertension) SNOMED Code(s): 73780272 Code(s): I10 - ESSENTIAL (PRIMARY) HYPERTENSION Status: Chronic Current Visit: No Qualifiers: Hypertension type: essential hypertension Qualified Code(s): I10 - Essential (primary) hypertension Annotation/Comment:: Continue meds. (9) Hypothyroidism SNOMED Code(s): 48590526 Code(s): E03.9 - HYPOTHYROIDISM, UNSPECIFIED Status: Chronic Current Visit: No Qualifiers: Hypothyroidism type: unspecified Qualified Code(s): E03.9 - Hypothyroidism , unspecified (10) Obesity SNOMED Code(s): 846223116, 225634174 Code(s): E66.9 - OBESITY, UNSPECIFIED Status: Chronic Current Visit: No Qualifiers: Obesity type: due to excess calories (11) Hypernatremia SNOMED Code(s): 659453811 Code(s): E87.0 - HYPEROSMOLALITY AND HYPERNATREMIA Status: Acute Current Visit: Yes - Problem List Review Problem List Initiated/Reviewed/Updated: Yes - My Orders Last 24 Hours: My Active Orders 06/06/19 Dinner Regular Diet [DIET] 06/08/19 05:11 BASIC METABOLIC PANEL,BMP [CHEM] AM CBC WITH AUTO DIFF [HEME] AM - Plan Plan:: Sodium is abit high. Will stop IVF,encourage oral fluids,and advance diet. DC home in AM
[2019-06-07] MEDS: Fluticasone Propionate Nasal Spray 16 GM Bottle NASBOTH SCH (08:57)
[2019-06-07] MEDS: Acetaminophen 650 MG Tab.ER PO SCH ×3 (08:58→21:02)
[2019-06-07] MEDS: Gabapentin 100 MG Cap PO SCH ×3 (08:58→21:01)
[2019-06-07] MEDS: Metoprolol Succinate 50 MG Tab.ER PO SCH (08:58)
[2019-06-07] MEDS: Sertraline 50 MG Tab PO SCH (11:32)
[2019-06-07] MEDS: Simvastatin 40 MG Tab PO SCH (21:03)
[2019-06-07] MEDS: cefTRIAXone 2 GM Vial IVPUSH SCH (21:08)
--- NOTE | 2019-06-08 08:51 | PCM.PN ---
- General Info Date of Service: 06/08/19 Subjective Update: Feels much better. Denies vomiting,or urinary symptoms Functional Status: Reports: Pain Controlled, Tolerating Diet - Review of Systems HEENT: Reports: No Symptoms Pulmonary: Reports: No Symptoms Cardiovascular: Reports: No Symptoms Gastrointestinal: Reports: No Symptoms - Patient Data Vitals - Most Recent: Last Vital Signs Temp 98.2 F 06/08/19 02:00 Pulse 70 06/08/19 02:00 Resp 18 06/08/19 02:00 BP 136/57 L 06/08/19 02:00 Pulse Ox 93 L 06/08/19 02:00 Weight - Most Recent: 96.978 kg I&O - Last 24 Hours: Intake & Output 06/07/19 06/08/19 06/08/19 22:59 06:59 14:59 Intake Total 240 Balance 240 Lab Results Last 24 Hours: Laboratory Results - last 24 hr 06/08/19 06/08/19 Range/Units 06:50 06:50 WBC 3.9 L (4.5-12.0) X10-3/uL RBC 3.15 L (3.23-5.20) x10(6)uL Hgb 9.5 L (11.5-15.5) g/dL Hct 29.1 L (30.0-51.3) % MCV 92.3 (80-96) fL MCH 30.3 (27.7-33.6) pg MCHC 32.8 (32.2-35.4) g/dL RDW 14.9 (11.5-15.5) % Plt Count 30 L* (125-369) X10(3)uL MPV 10.2 (7.4-10.4) fL Add Manual Diff Yes Neutrophils % (Manual) 42 L (46-82) % Lymphocytes % (Manual) 44 H (13-37) % Monocytes % (Manual) 14 H (4-12) % Sodium 146 H (135-145) mmol/L Potassium 4.1 (3.5-5.3) mmol/L Chloride 108 (100-110) mmol/L Carbon Dioxide 29 (21-32) mmol/L BUN 32 H (7-18) mg/dL Creatinine 1.5 H (0.55-1.02) mg/dL Est Cr Clr Drug Dosing 18.26 mL/min Estimated GFR (MDRD) 33 L (>60) BUN/Creatinine Ratio 21.3 H (9-20) Glucose 98 (80-116) mg/dL Calcium 8.4 L (8.6-10.2) mg/dL [facility]an Results Last 24 Hours: Microbiology 06/05/19 21:20 Urine Culture - Final Urine, Catheterized Med Orders - Current: Current Medications Acetaminophen (Tylenol Arthritis Pain) 975 mg PO TID [facility] Last Admin: 06/07/19 21:02 Dose: 975 mg Ceftriaxone Sodium (Rocephin) 2 gm IVPUSH Q24H [facility] Last Admin: 06/07/19 21:08 Dose: 2 gm Fluticasone Propionate (Flonase) 0 gm NASBOTH DAILY [facility] Last Admin: 06/07/19 08:57 Dose: 16 gram Gabapentin (Neurontin) 300 mg PO TID [facility] Metoprolol Succinate (Toprol Xl) 50 mg PO DAILY [facility] Last Admin: 06/07/19 08:58 Dose: 50 mg Ondansetron HCl (Zofran) 4 mg IV Q8H PRN PRN Reason: Nausea/Vomiting Sertraline HCl (Zoloft) 75 mg PO DAILY [facility] Last Admin: 06/07/19 11:32 Dose: 75 mg Simvastatin (Zocor) 40 mg PO BEDTIME [facility] Last Admin: 06/07/19 21:03 Dose: 40 mg Sodium Chloride (Saline Flush) 10 ml FLUSH ASDIRECTED PRN PRN Reason: Keep Vein Open Last Admin: 06/07/19 21:11 Dose: 10 ml Discontinued Medications Gabapentin (Neurontin) 300 mg PO TID [facility] Last Admin: 06/07/19 21:01 Dose: 300 mg Sodium Chloride (Normal Saline) 500 mls @ 500 mls/hr IV .BOLUS ONE Stop: 06/05/19 19:22 Last Admin: 06/05/19 18:53 Dose: 500 mls/hr Sodium Chloride (Normal Saline) 1,000 mls @ 75 mls/hr IV ASDIRECTED [facility] Last Admin: 06/06/19 12:01 Dose: 75 mls/hr Ondansetron HCl (Zofran) 4 mg IVPUSH ONETIME ONE Stop: 06/05/19 18:24 Last Admin: 06/05/19 18:51 Dose: 4 mg - Exam General: Alert, Oriented HEENT: Pupils Equal Neck: Supple Lungs: Clear to Auscultation Cardiovascular: Regular Rate GI/Abdominal Exam: Normal Bowel Sounds Back Exam: Normal Inspection Extremities: Normal Inspection Sepsis Event Note - Evaluation Sepsis Screening Result: No Definite Risk - Focused Exam Vital Signs: Vital Signs Temp Pulse Resp BP Pulse Ox 06/08/19 02:00 98.2 F 70 18 136/57 L 93 L Date Exam was Performed: 06/08/19 Time Exam was Performed: 08:50 - Problem List & Annotations (1) Gastroenteritis SNOMED Code(s): 20960722 Code(s): K52.9 - NONINFECTIVE GASTROENTERITIS AND COLITIS, UNSPECIFIED Status: Acute Current Visit: Yes (2) CKD (chronic kidney disease) SNOMED Code(s): 997081640 Code(s): N18.9 - CHRONIC KIDNEY DISEASE, UNSPECIFIED Status: Acute Current Visit: Yes Qualifiers: Chronic kidney disease stage: stage 3 (moderate) Qualified Code(s): N18.3 - Chronic kidney disease, stage 3 (moderate) (3) UTI (urinary tract infection) SNOMED Code(s): 09291581 Code(s): N39.0 - URINARY TRACT INFECTION, SITE NOT SPECIFIED Status: Acute Current Visit: Yes Qualifiers: Urinary tract infection type: acute cystitis Hematuria presence: with hematuria Qualified Code(s): N30.01 - Acute cystitis with hematuria (4) Anemia SNOMED Code(s): 451479849 Code(s): D64.9 - ANEMIA, UNSPECIFIED Status: Chronic Current Visit: No Qualifiers: Anemia type: due to chronic kidney disease (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 Status: Chronic Current Visit: No Qualifiers: 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 Qualified Code(s): K22.719 - Gaitan's esophagus with dysplasia, unspecified; 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 (6) Debility SNOMED Code(s): 44270470 Code(s): R53.81 - OTHER MALAISE Status: Chronic Current Visit: No (7) Diaphragmatic hernia SNOMED Code(s): 02005197 Code(s): K44.9 - DIAPHRAGMATIC HERNIA WITHOUT OBSTRUCTION OR GANGRENE Status: Chronic Current Visit: No Qualifiers: Obstruction and gangrene presence: without obstruction or gangrene Qualified Code(s): K44.9 - Diaphragmatic hernia without obstruction or gangrene (8) HTN (hypertension) SNOMED Code(s): 56478094 Code(s): I10 - ESSENTIAL (PRIMARY) HYPERTENSION Status: Chronic Current Visit: No Qualifiers: Hypertension type: essential hypertension Qualified Code(s): I10 - Essential (primary) hypertension Annotation/Comment:: Continue meds. (9) Hypothyroidism SNOMED Code(s): 59236573 Code(s): E03.9 - HYPOTHYROIDISM, UNSPECIFIED Status: Chronic Current Visit: No Qualifiers: Hypothyroidism type: unspecified Qualified Code(s): E03.9 - Hypothyroidism , unspecified (10) Obesity SNOMED Code(s): 311476592, 553179951 Code(s): E66.9 - OBESITY, UNSPECIFIED Status: Chronic Current Visit: No Qualifiers: Obesity type: due to excess calories (11) Hypernatremia SNOMED Code(s): 060156725 Code(s): E87.0 - HYPEROSMOLALITY AND HYPERNATREMIA Status: Acute Current Visit: Yes - Problem List Review Problem List Initiated/Reviewed/Updated: Yes - Plan Plan:: DC home today.DC abx.Culture was negative
[2019-06-08] MEDS: Fluticasone Propionate Nasal Spray 16 GM Bottle NASBOTH SCH (09:53)
[2019-06-08] MEDS: Metoprolol Succinate 50 MG Tab.ER PO SCH (09:54)
[2019-06-08] MEDS: Acetaminophen 325 MG Tab PO SCH ×2 (09:54→15:36)
[2019-06-08] MEDS ORDERED: Sertraline 50 MG Tab PO SCH (10:00)
[2019-06-08] MEDS: Gabapentin 300 MG Cap PO SCH ×2 (10:09→15:36)
[2019-06-08 10:12] VITALS: BP 138/64; PULSE 63
[2019-06-08] MEDS: Sertraline 50 MG Tab PO SCH (10:13)
== END 2019-06-08 13:35 | disposition home health service (06) ==
LOC: FB.ED 18:18 → FB.MS 21:02
PROVIDERS: ADMIT Emergency Medicine; ATTEND Family Medicine
DX: K52.9 Noninfective gastroenteritis and colitis, unspecified (principal); K22.719 Barrett's esophagus with dysplasia, unspecified; K44.9 Diaphragmatic hernia without obstruction or gangrene; D64.9 Anemia, unspecified; I13.0 Hypertensive heart and chronic kidney disease with heart failure and stage 1 through stage 4 chronic kidney disease, or unspecified chronic kidney disease; I50.9 Heart failure, unspecified; E11.22 Type 2 diabetes mellitus with diabetic chronic kidney disease; N18.3 Chronic kidney disease, stage 3 (moderate); E78.00 Pure hypercholesterolemia, unspecified; E03.9 Hypothyroidism, unspecified; N30.01 Acute cystitis with hematuria; F41.9 Anxiety disorder, unspecified; F32.9 Major depressive disorder, single episode, unspecified; M19.042 Primary osteoarthritis, left hand; M19.041 Primary osteoarthritis, right hand; M17.0 Bilateral primary osteoarthritis of knee; R53.81 Other malaise; E66.9 Obesity, unspecified; Z88.5 Allergy status to narcotic agent; Z79.899 Other long term (current) drug therapy; Z79.82 Long term (current) use of aspirin
CPT/HCPCS: 36415; 74176; 80048; 80053; 81001; 83690; 85025; 87086; 96361; 96374; 96375; 96376; 99284; 99285; A9270; G0378; J0696; J2405; J7030; J7040; 99217; 99218; 99224